=== PATIENT | male | born 1990 | race Caucasian/White ===

== ENCOUNTER 2021-04-01 16:50 | Emergency (ER) | payer BC, OTHER ==
[~2021-04-01] VITALS: Ht 177.8 cm; Wt 72.6 kg
[2021-04-01 17:15] VITALS: BP 104/65
[2021-04-01] MEDS ORDERED: MECLIZINE HCL 25 MG TABLET PO ONE (18:00)
[2021-04-01] MEDS ORDERED: NAPR500T6 PO (18:10)
[2021-04-01] MEDS ORDERED: MECL-159 PO (18:10)
[2021-04-01] MEDS ORDERED: MECLIZINE HCL 25 MG TABLET ONE (18:23)
--- NOTE | 2021-04-01 18:26 | NUR ---
Patient discharged to home in stable condition. Written and verbal after care instructions given. Patient verbalizes understanding of instruction. Pt ambulatory with a steady gait
== END 2021-04-01 18:27 | disposition home or self-care (01) ==
LOC: ER 16:54
DX: S06.0X0A Concussion without loss of consciousness, initial encounter (principal); S00.03XA Contusion of scalp, initial encounter; S60.512A Abrasion of left hand, initial encounter; S09.8XXA Other specified injuries of head, initial encounter; R51.9 Headache, unspecified; F10.10 Alcohol abuse, uncomplicated; Y90.9 Presence of alcohol in blood, level not specified; Z60.2 Problems related to living alone; Z79.899 Other long term (current) drug therapy; Y04.8XXA Assault by other bodily force, initial encounter; Y93.89 Activity, other specified; Y92.89 Other specified places as the place of occurrence of the external cause; Y99.8 Other external cause status
CPT/HCPCS: 70450; 99284; J8597